=== PATIENT | female | born 1995 | race Caucasian/White ===

== ENCOUNTER 2017-09-25 14:36 | Emergency (ER) | payer MEDICAID ==
[~2017-09-25] VITALS: Ht 167.6 cm; Wt 81.6 kg
[2017-09-25 14:50] VITALS: BP_SYST 147
[2017-09-25] MEDS ORDERED: HYDROcodone/ACETAMIN 5-325 MG TAB (NORCO/ VICODIN) PO ONE (15:15)
[2017-09-25 16:15] VITALS: BP_SYST 114
== END 2017-09-25 16:14 | disposition home or self-care (01) ==
LOC: SED 14:36
DX: S92.355A Nondisplaced fracture of fifth metatarsal bone, left foot, initial encounter for closed fracture (principal); S93.402A Sprain of unspecified ligament of left ankle, initial encounter; M54.5 Low back pain; W19.XXXA Unspecified fall, initial encounter; Y93.89 Activity, other specified; Y92.89 Other specified places as the place of occurrence of the external cause; Y99.8 Other external cause status
CPT/HCPCS: 99284

== ENCOUNTER 2017-10-03 22:28 | Emergency (ER) | payer MEDICAID ==
[~2017-10-03] VITALS: Ht 167.6 cm; Wt 81.6 kg
[2017-10-03 22:31] VITALS: BP_SYST 120
--- NOTE | 2017-10-03 22:34 | NUR ---
Patient to ER bed 07 to gown for evaluation. Side rails up.
--- NOTE | 2017-10-03 22:45 | NUR ---
Patient to ER C/O left lower leg discoloration, subjective "purple" and pain 9/10. States that she was Dx with metatersal fracture, had splint placed and the foot is been getting worse, pain radiating up her leg. States "motrin is not working" No other medical complaints.
--- NOTE | 2017-10-03 23:07 | NUR ---
ER MD Alcocer at bedside evaluating the patient
--- NOTE | 2017-10-03 23:24 | NUR ---
Radiology at bedside with portable for xray
[2017-10-03] MEDS ORDERED: KETOROLAC TROMETHAMINE 60 MG/2 ML VIAL IM ONE (23:30)
[2017-10-04] MEDS ORDERED: HYDROcodone/ACETAMIN 5-325 MG TAB (NORCO/ VICODIN) PO ONE
--- NOTE | 2017-10-04 00:06 | NUR ---
ER MD Alcocer at bedside discussing plan of care and discharge with patient and family.
--- NOTE | 2017-10-04 00:14 | NUR ---
Ortho boot to left lower leg.
[2017-10-04 00:39] VITALS: BP_SYST 121
--- NOTE | 2017-10-04 00:39 | NUR ---
Patient given written and verbal discharge instructions and verbalizes understanding. ER MD Alcocer discussed with patient the results and treatment provided. Patient in stable condition. ID arm band removed. Patient educated on pain management and to follow up with PMD. Pain Scale 0/10. Opportunity for questions provided and answered. Ortho information given to patient and advised to make appointment DUSTIN for follow up.
== END 2017-10-04 00:39 | disposition home or self-care (01) ==
LOC: SED 22:28
DX: S92.352D Displaced fracture of fifth metatarsal bone, left foot, subsequent encounter for fracture with routine healing (principal); W19.XXXD Unspecified fall, subsequent encounter
CPT/HCPCS: 81025; 93971; 99284; J1885

== ENCOUNTER 2017-10-19 21:39 | Emergency (ER) | payer MEDICAID ==
[~2017-10-19] VITALS: Ht 165.1 cm; Wt 81.6 kg
[2017-10-19 21:50] VITALS: BP_SYST 127
[2017-10-19 23:46] VITALS: BP_SYST 122
== END 2017-10-19 23:46 | disposition home or self-care (01) ==
LOC: SED 21:39
DX: S92.352D Displaced fracture of fifth metatarsal bone, left foot, subsequent encounter for fracture with routine healing (principal); W19.XXXD Unspecified fall, subsequent encounter
CPT/HCPCS: 99284

== ENCOUNTER 2017-11-07 17:25 | Emergency (ER) | payer MEDICAID ==
[~2017-11-07] VITALS: Ht 167.6 cm; Wt 81.6 kg
[2017-11-07 17:25] VITALS: BP_SYST 115
[2017-11-07] MEDS ORDERED: IBUPROFEN 800 MG TABLET PO ONE (17:45)
[2017-11-07 18:47] VITALS: BP_SYST 116
== END 2017-11-07 18:49 | disposition home or self-care (01) ==
LOC: SED 17:25
DX: S62.307G Unspecified fracture of fifth metacarpal bone, left hand, subsequent encounter for fracture with delayed healing (principal); M79.675 Pain in left toe(s); X58.XXXD Exposure to other specified factors, subsequent encounter
CPT/HCPCS: 99284

== ENCOUNTER 2018-01-02 10:17 | Emergency (ER) | payer MEDICAID ==
[~2018-01-02] VITALS: Ht 165.1 cm; Wt 88.5 kg
[2018-01-02 10:17] VITALS: BP_SYST 110
[2018-01-02] MEDS ORDERED: IBUPROFEN 800 MG TABLET PO ONE (10:30)
[2018-01-02 10:53] LABS: BILIRUBIN,URINE NEGATIVE (NEGATIVE); BLOOD, URINE NEGATIVE (NEGATIVE); CLARITY/URINE CLEAR (CLEAR); COLOR,URINE YELLOW (YELLOW); GLUCOSE,URINE NEGATIVE (NEGATIVE); KETONES,URINE NEGATIVE (NEGATIVE); LEUKOCYTE ESTERASE ,URINE 1+ (NEGATIVE); NITRITE, URINE NEGATIVE (NEGATIVE); PH,URINE 6.5 (5.0-8.0); PROTEIN URINE NEGATIVE (NEGATIVE); UROBILINOGEN,URINE 0.2 (0.2-1.0)
[2018-01-02 11:03] LABS: RBC,URINE 0-3 /HPF (0-3)
[2018-01-02 11:04] LABS: BACTERIA,URINE FEW /HPF (None Seen); MUCUS,URINE None Seen /LPF (None Seen); YEAST,URINE None Seen /HPF (None Seen)
== END 2018-01-02 11:50 | disposition home or self-care (01) ==
LOC: SED 10:17
DX: M54.5 Low back pain (principal); R07.1 Chest pain on breathing
CPT/HCPCS: 71045; 72100-TC; 81000-TC; 81025; 99285

== ENCOUNTER 2018-08-20 15:43 | Emergency (ER) | payer MEDICAID ==
[~2018-08-20] VITALS: Ht 167.6 cm; Wt 85.7 kg
--- NOTE | 2018-08-20 15:50 | NUR ---
Pt placed in bed 5
[2018-08-20 15:54] VITALS: BP_SYST 128
--- NOTE | 2018-08-20 16:02 | NUR ---
ER Dr. Cartagena at bedside examining patient.
--- NOTE | 2018-08-20 16:20 | NUR ---
Note undluis in EDM - 08/20/18 at 1632 by [email or web address] Patient presented to ER with left foot toe and ankle pain. patient AA&Ox4, skin pink, afebrile, pain 12/05, pattient denies N/V/D. Patient ambulatory to ER, patient states pain started last night and was unable to sleep from the pain 12/05, prompting ER visit today. Patient states she fractured 5th metatarsal 08/2017.
--- NOTE | 2018-08-20 16:35 | NUR ---
Radiology at bedside for ultrasound
[2018-08-20 17:20] VITALS: BP_SYST 120
--- NOTE | 2018-08-20 17:20 | NUR ---
Patient given written and verbal discharge instructions and verbalizes understanding. ER MD discussed with patient the results and treatment provided. Patient in stable condition. ID arm band removed. Rx of given. Patient educated on pain management and to follow up with PMD. Pain Scale 7/10 tolerable for patient. Opportunity for questions provided and answered. Medication side effect fact sheet provided.
== END 2018-08-20 17:20 | disposition home or self-care (01) ==
LOC: SED 15:43
DX: M79.672 Pain in left foot (principal); Z87.81 Personal history of (healed) traumatic fracture; R03.0 Elevated blood-pressure reading, without diagnosis of hypertension
CPT/HCPCS: 93971; 99284

== ENCOUNTER 2019-01-29 09:54 | Emergency (ER) | payer MEDICAID ==
[~2019-01-29] VITALS: Ht 165.1 cm; Wt 99.8 kg
[2019-01-29 09:55] VITALS: BP_SYST 128
[2019-01-29 12:03] VITALS: BP_SYST 126
== END 2019-01-29 12:05 | disposition home or self-care (01) ==
LOC: SED 09:54
DX: E73.9 Lactose intolerance, unspecified (principal); F41.9 Anxiety disorder, unspecified
CPT/HCPCS: 99284

== ENCOUNTER 2019-06-25 14:28 | Emergency (ER) | payer MEDICAID ==
[~2019-06-25] VITALS: Ht 167.6 cm; Wt 83.9 kg
[2019-06-25 15:02] VITALS: BP_SYST 162
[2019-06-25 18:08] VITALS: BP_SYST 140
== END 2019-06-25 18:08 | disposition home or self-care (01) ==
LOC: SED 14:28
DX: L03.211 Cellulitis of face (principal)
CPT/HCPCS: 70450-TC; 70486-TC; 81002; 81025; 99285

== ENCOUNTER 2019-06-29 22:29 | Emergency (ER) | payer MEDICAID ==
[~2019-06-29] VITALS: Ht 167.6 cm; Wt 99.8 kg
[2019-06-29 22:40] VITALS: BP_SYST 128
--- NOTE | 2019-06-29 22:46 | NUR ---
Patient triaged and placed in waiting room. VSS and patient appears in no acute distress at this time. Accompanied by mother, awaiting available bed, and MD notified of need for MSE.
--- NOTE | 2019-06-29 23:00 | NUR ---
Izzy morgan in ED - 06/30/19 at 0215 by [email or web address] LILIANA Du at bedside examining patient.
--- NOTE | 2019-06-29 23:23 | NUR ---
Note undone in EDM - 06/30/19 at 0215 by [email or web address] PT AAOx4 presents to ED via wheelchair c/o 12/05 abd pain x 2 days. +vomiting. Denies sob/cp. Pt reports she has hx of gallstones and was given morphine at her last visit. Skin pink dry and warm, breathing even and unlabored. no other injuries/complaints per pt/noted. Will continue t omonitor.
--- NOTE | 2019-06-30 02:08 | NUR ---
Patient to ER bed 3 to gown for evaluation. Side rails up. Report given to RANDY Hinojosa.
--- NOTE | 2019-06-30 02:10 | NUR ---
Patient is awake, alert, and oriented x4. Mother is at bedside. Patient was seen on Friday and given Keflex with no improvement. Swelling is worse and has pain.
--- NOTE | 2019-06-30 02:25 | NUR ---
ER Dr. Du at bedside examining patient.
--- NOTE | 2019-06-30 02:43 | NUR ---
Patient given written and verbal discharge instructions and verbalizes understanding. ER MD discussed with patient the results and treatment provided. Patient in stable condition. ID arm band removed. IV catheter removed intact and dressing applied, no active bleeding. Rx of augmentin, prednisone, tylenol given. Patient educated on pain management and to follow up with PMD. Pain Scale 10/10, Dr. Du is aware. Opportunity for questions provided and answered. Medication side effect fact sheet provided.
[2019-06-30 02:45] VITALS: BP_SYST 114
[2019-06-30] MEDS ORDERED: ACETAMINOPHEN/CODEINE 300 MG-30 MG TABLET PO ONE (02:45)
== END 2019-06-30 02:45 | disposition home or self-care (01) ==
LOC: SED 22:29
DX: L03.211 Cellulitis of face (principal); R22.0 Localized swelling, mass and lump, head
CPT/HCPCS: 99283

== ENCOUNTER 2022-07-17 12:58 | Inpatient (IN) | payer MEDICAID ==
[~2022-07-17] VITALS: Ht 165.1 cm; Wt 127.5 kg
[2022-07-17 13:19] VITALS: BP_SYST 128
--- NOTE | 2022-07-17 13:24 | NUR ---
Patient to ER bed 06 to gown for evaluation. Side rails up.
--- NOTE | 2022-07-17 13:25 | NUR ---
PT PRESENTS TO ED WITH REPORT OF RUQ PAIN, NAUSEA AND HEADACHES WITH "OCCASIONAL BLURRED VISION FROM PAIN". PT REPORTS RECENT DIAGNOSIS OF GALLSTONES X 1 WEEK AGO, REPORTS PAIN HAS GOTTEN WORSE. PT ALSO REPORTS RECENT DIAGNOSIS OF UTI / KIDNEY INFECTION AND CURRENTLY TAKING MACROBID ABT. PT REPORTS "OCCASIONAL" DIARRHEA WELL. PT IS AWAKE, A/O X4 AND VERBALLY RESPONSIVE. NO ACUTE DISTRESS NOTED. BREATHING EVEN AND UNLABORED. SAFETY MEASURES IN PLACE. MOTHER AT BEDSIDE
[2022-07-17] MEDS ORDERED: KETOROLAC TROMETHAMINE 60 MG/2 ML VIAL IM ONE (13:30)
--- NOTE | 2022-07-17 13:32 | NUR ---
ER at bedside examining patient.
[2022-07-17] MEDS ORDERED: ONDANSETRON HCL 4 MG/2 ML VIAL IVP ONE (13:45)
[2022-07-17] MEDS ORDERED: MORPHINE 4 MG INJ. 4 MG/ML VIAL IVP ONE (13:45)
[2022-07-17] MEDS ORDERED: NACL 0.9% 1,000 ML IV ONE (13:45)
[2022-07-17 14:03] LABS: BASOPHILS % (AUTO) 0.3 % (0.0-2.0); EOSINOPHILS % (AUTO) 0.4 % (0.0-4.0); HEMATOCRIT 42.2 % (36-48); HEMOGLOBIN 14.2 g/dL (12.0-16.0); LYMPHOCYTES # (AUTO) 3.2 K/uL (1.0-5.5); LYMPHOCYTES % (AUTO) 25.5 % (20.5-51.5); MEAN CORPUSCULAR HEMOGLOBIN 29 pg (27-31); MEAN CORPUSCULAR HGB CONC 34 % (32-36); MEAN CORPUSCULAR VOLUME 86 fL (79.0-98.0); MONOCYTES # (AUTO) 0.8 K/uL (0.0-1.0); MONOCYTES % (AUTO) 6.4 % (1.7-9.3); NEUTROPHILS # (AUTO) 8.4 K/uL (1.8-7.7); NEUTROPHILS % (AUTO) 67.4 % (40.0-70.0); PLATELET COUNT (AUTO) 341 K/uL (130-430); RED BLOOD CELL COUNT(AUTO) 4.94 MIL/uL (4.2-6.2); RED CELL DISTRIBUTION WIDTH 13.3 % (9.0-15.0); WHITE BLOOD COUNT (AUTO) 12.5 K/uL (4.8-10.8)
--- NOTE | 2022-07-17 14:09 | NUR ---
20G IV INSERTED TO RIGHT AC, TOLERATED WELL, POSITIVE BLOOD RETURN. OBTAINED LAB DRAW FROM IV AND SENT TO LAB. IV SECURED IN PLACE, NO REDNESS OR SWELLING NOTED
[2022-07-17 14:23] LABS: BILIRUBIN,URINE NEGATIVE (NEGATIVE); BLOOD, URINE NEGATIVE (NEGATIVE); COLOR,URINE YELLOW (YELLOW); GLUCOSE,URINE NEGATIVE (NEGATIVE); KETONES,URINE NEGATIVE (NEGATIVE); LEUKOCYTE ESTERASE ,URINE 1+ (NEGATIVE); NITRITE, URINE NEGATIVE (NEGATIVE); PROTEIN URINE NEGATIVE (NEGATIVE); UROBILINOGEN,URINE 0.2 (0.2-1.0)
[2022-07-17 14:23] LABS: ALBUMIN 3.5 g/dL (3.4-4.8); CREATININE 0.89 mg/dL (0.55-1.30); TOTAL BILIRUBIN 0.4 mg/dL (0.0-1.0)
[2022-07-17 14:29] LABS: CLARITY/URINE HAZY (CLEAR)
[2022-07-17 14:30] LABS: BACTERIA,URINE MODERATE /HPF (None Seen); RBC,URINE 0-3 /HPF (0-3); YEAST,URINE Few /HPF (None Seen)
--- NOTE | 2022-07-17 14:44 | NUR ---
PT IN POSITION OF COMFORT, BREATHING EVEN AND UNLABORED. NO ACUTE DISTRESS NOTED. SAFETY MEASURES IN PLACE. MOTHER REMAINS AT BEDSIDE. NO CHANGES NOTED AT THIS TIME
--- NOTE | 2022-07-17 14:48 | NUR ---
MD BLACKWOOD AT BEDSIDE SPEAKING TO PT
[2022-07-17] MEDS ORDERED: NITR-85 PO (14:50)
[2022-07-17] MEDS ORDERED: HYDR-3921 PO (14:50)
[2022-07-17] MEDS ORDERED: ONDA-8 TL (14:50)
[2022-07-17] MEDS ORDERED: NAPR-688 PO (14:50)
--- NOTE | 2022-07-17 14:59 | NUR ---
SWABBED BILATERAL NARES FOR COVID AND SENT TO LAB
--- NOTE | 2022-07-17 15:04 | NUR ---
REPORT GIVEN TO KAI PADILLA TO CONTINUE CARE OF PT
[2022-07-17] MEDS ORDERED: ONDANSETRON HCL 4 MG/2 ML VIAL IVP PRN (15:30)
--- NOTE | 2022-07-17 15:31 | NUR ---
Admit bed requested Patient will be admitted to care of . Admitted to MED SURGunit. Diagnosis CHOLECYSTITIS Inpatient (Yes or No) Y Observation (Yes or No) N Orientation concerns or request close to nursing station (Yes or No) N Covid Status PENDING On vent or bipap N Isolation requirements N Needs a sitter N From Home (Yes or if No enter name of facility) Y Requires Dialysis (Yes or No) N Med Rec Completed (Yes of No) Y
--- NOTE | 2022-07-17 17:05 | NUR ---
Patient will be admitted to care of dr. hung. Admitted to med surg unit. Will go to room 119a. Complete and up to date summary report printed. SBAR report to be given to RANDY Ac with opportunity for questions. Transfer to [facility]. IV present no sign or symptom of infiltration.
[2022-07-17 17:23] VITALS: BP_SYST 130
--- NOTE | 2022-07-17 17:23 | NUR ---
Admission Note Received patient from ER with diagnosis of Cholecystitis. Initial Plan of Care discussed-patient verbalized understanding. Oriented to room, call light, bed at lowest level, pain management and safety.
--- NOTE | 2022-07-17 17:29 | NUR ---
CONSULT SURGERY CHOLECYSTITIS DR MONTEJO [phone] S/W SHYRO EXCHANGE
--- NOTE | 2022-07-17 18:58 | NUR ---
Closing notes Patient laying in bed, resting watching TV. A/O x 4, Chinese speaking. Patient Breathing even and unlabored on room air. Level 7 pain, no distress. Patient is on a liquid diet. Patient has RAC 20g SL. Patient has BRP and is ambulatory. Bed is locked in lowest position. Call light within reach, all needs met, will endorse to night nurse .
[2022-07-17 19:50] VITALS: BP_SYST 126
--- NOTE | 2022-07-17 19:50 | NUR ---
RECEIVED PT IN BED, AOX4, EVEN AND UNLABORED BREATHING NOTED, PT DENIED SOB, CP , N/V OR PAIN ATT, SALINE LOCK TO THE RAC, WILL CONTINUE WITH POC
[2022-07-17] MEDS: PIPERACILLIN/TAZO 3.375/DEX-IS 50 ML IV SCH (22:26)
[2022-07-18] VITALS: BP_SYST 134
[2022-07-18 00:10] VITALS: BP_SYST 122
[2022-07-18] MEDS: PIPERACILLIN/TAZO 3.375/DEX-IS 50 ML IV SCH ×3 (05:16→22:52)
[2022-07-18 06:09] LABS: BASOPHILS % (AUTO) 0.2 % (0.0-2.0); EOSINOPHILS # (AUTO) 0.1 K/uL (0.0-0.4); EOSINOPHILS % (AUTO) 0.7 % (0.0-4.0); HEMATOCRIT 37.9 % (36-48); HEMOGLOBIN 13.2 g/dL (12.0-16.0); LYMPHOCYTES # (AUTO) 3.9 K/uL (1.0-5.5); LYMPHOCYTES % (AUTO) 29.2 % (20.5-51.5); MEAN CORPUSCULAR HEMOGLOBIN 30 pg (27-31); MEAN CORPUSCULAR HGB CONC 35 % (32-36); MEAN CORPUSCULAR VOLUME 85 fL (79.0-98.0); MONOCYTES # (AUTO) 0.9 K/uL (0.0-1.0); MONOCYTES % (AUTO) 6.7 % (1.7-9.3); NEUTROPHILS # (AUTO) 8.4 K/uL (1.8-7.7); NEUTROPHILS % (AUTO) 63.2 % (40.0-70.0); PLATELET COUNT (AUTO) 312 K/uL (130-430); RED BLOOD CELL COUNT(AUTO) 4.45 MIL/uL (4.2-6.2); RED CELL DISTRIBUTION WIDTH 13.4 % (9.0-15.0); WHITE BLOOD COUNT (AUTO) 13.3 K/uL (4.8-10.8)
--- NOTE | 2022-07-18 06:34 | NUR ---
PT IN BED, AOX4, EVEN AND UNLABORED BREATHING NOTED, PT DENIED SOB, CP , N/V OR PAIN ATT, AWAITING SURGERY TODAY, NPO FROM 12MN, SALINE LOCK TO THE RAC, MRSA SENT THIS AM, OR CHECKLIST COMPLETED, SAFETY PREC MAINTAINED, CALL LIGHT WITHIN REACH, WILL ENDORSE TO INCOMING RN
[2022-07-18 06:36] LABS: INR 1.1 (0.8-1.2); PROTHROMBIN TIME 10.8 SECS (9.5-12.5)
[2022-07-18 06:53] LABS: ALBUMIN 3.3 g/dL (3.4-4.8); BILIRUBIN,DIRECT 0.1 mg/dL (0.0-0.3); TOTAL BILIRUBIN 0.6 mg/dL (0.0-1.0)
[2022-07-18] MEDS: LR 1,000 ML IV SCH ×3 (08:00→21:20)
[2022-07-18] MEDS: HYDROmorphone 1 MG/ML INJ. CARTRIDGE IVP PRN ×2 (08:49→14:59)
[2022-07-18 08:59] VITALS: BP_SYST 125
--- NOTE | 2022-07-18 09:31 | NUR ---
Gen Surgeon, Dr Mead requested the radiology reports from [facility]. Spoke to Fina from [facility] medical record and she confirmed that no radiology test was done when she was in the ED. Notified resource RANDY Del Toro and RANDY Kohli.
[2022-07-18] MEDS ORDERED: KETOROLAC TROMETHAMINE 30 MG VIAL ONE (09:40)
[2022-07-18] MEDS ORDERED: ONDANSETRON HCL 4 MG/2 ML VIAL ONE (09:40)
[2022-07-18] MEDS ORDERED: PROPOFOL 200MG/ 20ML VIAL (DIPRIVAN) IV ONE (09:40)
[2022-07-18] MEDS ORDERED: ROCURONIUM BROMIDE 10 MG/ML (ZEMURON) ONE (09:40)
[2022-07-18] MEDS ORDERED: SUCCINYLCHOLINE CHLORIDE 20 MG/ML(QUELICIN) ONE (09:40)
[2022-07-18] MEDS ORDERED: NS IRRIG SOLN 1000 ML IR ONE (09:40)
[2022-07-18] MEDS ORDERED: GLYCOPYRROLATE 0.2 MG/ML VIAL ONE (09:40)
[2022-07-18] MEDS ORDERED: SEVOFLURANE 15 MIN GAS INH ONE (09:40)
[2022-07-18] MEDS ORDERED: fentaNYL CITRATE/PF 100 MCG/2 ML AMP ONE (09:40)
[2022-07-18] MEDS ORDERED: BUPIVACAINE /EPINEPHRINE/PF 0.5% 30 ML VIAL INJ ONE (09:40)
[2022-07-18] MEDS ORDERED: LR 1,000 ML IV.SOLN IV ONE (09:40)
[2022-07-18] MEDS ORDERED: PHENYLEPHRINE HCL 10 MG/ML VIAL (NEOSYNEPHRINE) ONE (09:40)
[2022-07-18] MEDS ORDERED: MIDAZOLAM HCL 5 MG/5 ML VIAL ONE (09:40)
[2022-07-18] MEDS ORDERED: NS 1000 ML IV.SOLN IV ONE (09:40)
[2022-07-18] MEDS ORDERED: NALOXONE HCL 0.4 MG/ML AMP (NARCAN) IVP PRN (11:00)
[2022-07-18] MEDS ORDERED: ONDANSETRON HCL 4 MG/2 ML VIAL IVP PRN (11:00)
[2022-07-18] MEDS ORDERED: HYDROmorphone 1 MG/ML INJ. CARTRIDGE IVP PRN (11:00)
[2022-07-18] MEDS ORDERED: ACETAMINOPHEN I.V. 1000 MG 100 ML IV ONE (11:00)
[2022-07-18] MEDS ORDERED: METOCLOPRAMIDE HCL 10 MG/2 ML VIAL IVP PRN (11:00)
[2022-07-18] MEDS ORDERED: KETOROLAC TROMETHAMINE 30 MG VIAL IVP PRN (11:00)
[2022-07-18 15:30] VITALS: BP_SYST 106
--- NOTE | 2022-07-18 16:36 | NUR ---
Dietitian Recommendations * Continue on clear liquid diet per MD Rx * Recommend advance diet within 1-3 days per MD Rx/as tolerated -if diet unable to advance, consider nutrition support Monitor/evaluate PO intake, GI, skin, labs Refer to Nutrition Assessment for Details CRISTINA HERNANDEZ Addendum: 07/18/22 at [address] Amended: Links added.
[2022-07-18 20:00] VITALS: BP_SYST 115
--- NOTE | 2022-07-18 20:00 | NUR ---
OPENING Received patient resting in bed, unlabored breathing on room air. Denies pain or nausea. Lap sites x4 with dressings in place. Small amount of red drainage noted on the most lateral right side dressing. Father at bedside. Safety precautions in place.
[2022-07-18] MEDS ORDERED: BENZOCAINE/MENTHOL 1 EACH LOZENGE MM PRN (21:15)
--- NOTE | 2022-07-18 21:16 | NUR ---
Informed Dr. Pierre of patient's complaint of sore throat. Received order for Cepacol lozenge PRN.
[2022-07-19 00:58] VITALS: BP_SYST 122
--- NOTE | 2022-07-19 01:32 | NUR ---
ROUNDS: Patient sleeping in bed, no sign of distress noted. IV fluids infusing as ordered. Dressings to lap sites in place, drainage unchanged. Patient ambulated to bathroom with steady gait, no dizziness reported. Some discomfort to abdominal area with movement but patient states it is tolerable and she doesn't want to take pain medication at the moment but will call if she changes her mind. Safety precautions in place.
[2022-07-19] MEDS: LR 1,000 ML IV SCH ×2 (02:43→10:45)
[2022-07-19 05:50] LABS: BASOPHILS % (AUTO) 0.2 % (0.0-2.0); EOSINOPHILS % (AUTO) 0.2 % (0.0-4.0); HEMATOCRIT 36.2 % (36-48); HEMOGLOBIN 12.2 g/dL (12.0-16.0); LYMPHOCYTES # (AUTO) 2.6 K/uL (1.0-5.5); LYMPHOCYTES % (AUTO) 19.5 % (20.5-51.5); MEAN CORPUSCULAR HEMOGLOBIN 29 pg (27-31); MEAN CORPUSCULAR HGB CONC 34 % (32-36); MEAN CORPUSCULAR VOLUME 86 fL (79.0-98.0); MONOCYTES % (AUTO) 7.8 % (1.7-9.3); NEUTROPHILS # (AUTO) 9.5 K/uL (1.8-7.7); NEUTROPHILS % (AUTO) 72.3 % (40.0-70.0); PLATELET COUNT (AUTO) 290 K/uL (130-430); RED BLOOD CELL COUNT(AUTO) 4.23 MIL/uL (4.2-6.2); RED CELL DISTRIBUTION WIDTH 13.1 % (9.0-15.0); WHITE BLOOD COUNT (AUTO) 13.2 K/uL (4.8-10.8)
[2022-07-19 06:19] LABS: CALCIUM 8.4 mg/dL (8.4-11.0); CREATININE 0.84 mg/dL (0.55-1.30)
[2022-07-19] MEDS: PIPERACILLIN/TAZO 3.375/DEX-IS 50 ML IV SCH ×2 (06:56→09:49)
--- NOTE | 2022-07-19 07:30 | NUR ---
CLOSING Patient resting in bed, unlabored breathing on room air. Drainage on dressings to lap sites unchanged throughout shift. Patient has passed gas but has not had bowel movement yet. Denies nausea. Reports some pain but denied pain medication this morning. Ambulated to bathroom several times with steady gait. Tolerating clear liquid diet. IV infiltrated and painful this morning. Scheduled Zosyn not yet administered and endorsed to oncoming nurse. Safety precautions in place.
[2022-07-19 08:00] VITALS: BP_SYST 126
--- NOTE | 2022-07-19 10:04 | NUR ---
Shift Summary: patient is AAOX4. vitals are stable. patient educated on plan of care for shift. PIV removed due to infiltration. new PIV placed. patient educated on importance of using call light for staff assistance due to patient being high risk for falls. patients states she understands. call light within reach, bed set to low and locked. will continue to monitor.
[2022-07-19] MEDS ORDERED: FLUCONAZOLE 100 MG TABLET (DIFLUCAN) PO ONE (11:30)
[2022-07-19 11:36] VITALS: BP_SYST 129
[2022-07-19 12:33] VITALS: BP_SYST 129
--- NOTE | 2022-07-19 13:58 | NUR ---
Discharge Summary: patient is AAOX4. vitals are stable. PIV removed. patient and father given discharge instructions regarding activity, diet, follow up appointment and medication. patient and father state they have no questions or concerns upon discharge. patient and father state they have all of patients personal belongings present with them upon discharge. patient leaving unit on wheelchair with assistance from staff.
[2022-07-20] MEDS ORDERED: FLUCONAZOLE 100 MG TABLET (DIFLUCAN) PO SCH (09:00)
== END 2022-07-19 14:00 | disposition home or self-care (01) | DRG 263 ==
LOC: SED 12:58 → SMU 15:23
PROVIDERS: ADMIT Specialist; ATTEND Specialist
PROC: 0FT44ZZ Resection of Gallbladder, Percutaneous Endoscopic Approach (ICD-10-PCS; principal; 2022-07-18 09:00)
DX: K80.00 Calculus of gallbladder with acute cholecystitis without obstruction (principal); R65.10 Systemic inflammatory response syndrome (SIRS) of non-infectious origin without acute organ dysfunction; K66.0 Peritoneal adhesions (postprocedural) (postinfection); N39.0 Urinary tract infection, site not specified; Z20.822 Contact with and (suspected) exposure to COVID-19; Z79.899 Other long term (current) drug therapy; Z79.891 Long term (current) use of opiate analgesic
CPT/HCPCS: 36415; 80048; 80053; 80076; 81000; 83690; 84702; 85025; 85610-TC; 85730-TC; 86886; 86900; 86901; 87081; 87086; 88304; 93005; 94010; 96365; 96375; 99285; C1727; J0330; J1170; J1885; J2250; J2270; J2370; J2405; J2543; J2704; J3010; J3490; J7030; J7120; Q9967

== ENCOUNTER 2023-05-17 22:16 | Emergency (ER) | payer MEDICAID ==
[~2023-05-17] VITALS: Ht 167.6 cm; Wt 127.0 kg
[2023-05-17 22:38] VITALS: BP_SYST 157; PULSE 82; RESP 20; TEMP 97; O2SAT 98
[2023-05-18] MEDS ORDERED: KETOROLAC TROMETHAMINE 30 MG VIAL IM ONE (01:45)
[2023-05-18] MEDS ORDERED: TRAM50TA2 PO (01:46)
[2023-05-18] MEDS ORDERED: METH-634 PO (01:46)
[2023-05-18 02:53] VITALS: BP_SYST 157; PULSE 82; RESP 20; TEMP 97; O2SAT 98
== END 2023-05-18 02:53 | disposition home or self-care (01) ==
LOC: SED 22:16
DX: G44.209 Tension-type headache, unspecified, not intractable (principal); R11.0 Nausea; Z79.899 Other long term (current) drug therapy
CPT/HCPCS: 99285; 81025; 70450; 76376; 96372; J1885